=== PATIENT | female | born 2000 | race Caucasian/White ===

== ENCOUNTER 2020-12-12 21:24 | Emergency (ER) | payer OTHER ==
--- NOTE | 2020-12-12 22:51 | EDM.PDOC ---
ED HPI GENERAL MEDICAL PROBLEM - General Chief Complaint: Skin Complaint Stated Complaint: RASH/HIVES Time Seen by Provider: 12/12/20 21:27 Source of Information: Reports: Patient History Limitations: Reports: No Limitations - History of Present Illness INITIAL COMMENTS - FREE TEXT/NARRATIVE: chief complaint: hives This is a 20 year old female presents to the ER for evaluation of hives. She reports this morning woke up with hives, welts on buttock, thighs with intense itch. started on left buttocks and back of thigh. took Benadryl and hydrocortisone cream and the rash improved. This evening was eating, normal diet, her hands became swollen, hives, welts and intense itch. repeat Benadryl and cream and the rash is almost gone. denies any insect bites, bee stings, poison lindsey contact. No other family members with similar rash. denies cough, shortness of breath, wheezing or any respiratory or throat symptoms. denies any changes in diet or liquids. She is here on vacation with family. Onset: Today Duration: Hour(s):, Waxing/Waning Location: Reports: Generalized (buttocks, thigh, hands) Quality: Reports: Other (severe pruritus) Improves with: Reports: Medication Worsens with: Reports: None Associated Symptoms: Reports: No Other Symptoms Treatments TECHNICAL SME: Reports: Other Medication(s) (Benadryl, hydrocortisone) denies pain Pain Score (Numeric/FACES): 0 - Related Data Allergies Allergy/AdvReac Type Severity Reaction Status Date / Time No Known Allergies Allergy Verified 12/12/20 22:26 Home Meds: Home Meds Etonogestrel [Nexplanon] 1 implant SUBCUT ASDIRECTED 12/12/20 [History] Past Medical History HEENT History: Reports: Impaired Vision, Other (See Below) Other HEENT History: glasses Psychiatric History: Reports: Anxiety Social & Family History - Tobacco Use Tobacco Use Status *Q: Never Tobacco User - Caffeine Use Caffeine Use: Reports: Coffee - Recreational Drug Use Recreational Drug Use: No - Living Situation & Occupation Living situation: Reports: Single, with Family (lives with family, College student at [employer]) Occupation: Student ED ROS GENERAL - Review of Systems Review Of Systems: See Below Constitutional: Reports: Other (uncomfortable from new onset of rash) HEENT: Reports: No Symptoms Respiratory: Reports: No Symptoms Cardiovascular: Reports: No Symptoms Endocrine: Reports: No Symptoms GI/Abdominal: Reports: No Symptoms : Reports: No Symptoms, Urinary Retention Skin: Reports: Rash, Urticaria Neurological: Reports: No Symptoms Psychiatric: Reports: No Symptoms Hematologic/Lymphatic: Reports: No Symptoms Immunologic: Reports: No Symptoms ED EXAM, SKIN/RASH Exam: See Below Exam Limited By: No Limitations General Appearance: Alert, WD/WN, No Apparent Distress, Other (pleasant, neat and well groomed female) Ears: Normal External Exam Nose: Normal Inspection, Normal Mucosa Throat/Mouth: Normal Inspection, Normal Lips, Normal Teeth, Normal Gums, Normal Oropharynx, Normal Voice, No Airway Compromise Head: Atraumatic, Normocephalic Neck: Normal Inspection, Supple, Non-Tender, Full Range of Motion Respiratory/Chest: No Respiratory Distress, Lungs Clear, Normal Breath Sounds, No Accessory Muscle Use Cardiovascular: Normal Peripheral Pulses, Regular Rate, Rhythm GI/Abdominal: Normal Bowel Sounds, Soft, Non-Tender Back Exam: Normal Inspection, Full Range of Motion Extremities: Normal Range of Motion, Non-Tender, Other (rash noted to left upper thight, low back, and hands) Neurological: No Motor/Sensory Deficits Psychiatric: Normal Affect, Normal Mood Skin: Warm, Dry, Normal Color, Rash Location, Skin: Other (left upper posterior thigh, left buttocks, low back and bilateral hands) Characteristics: Urticarial Associated features: Warmth, Swelling Lymphatic: No Adenopathy Course - Vital Signs Last Recorded V/S: Last Vital Signs Temp 98.2 F 12/12/20 22:28 Pulse 103 H 12/12/20 22:28 Resp 16 12/12/20 22:28 BP 143/82 H 12/12/20 22:28 Pulse Ox 98 12/12/20 22:28 - Re-Assessments/Exams Free Text/Narrative Re-Assessment/Exam: 12/12/20 23:02 discussed hives and potential causes and sometime this is just unknown, will need to treat for 3 to 5 days reduce activities, return to ER or call 911 if symptoms worsen or has any respiratory symptoms. agree with plan of care Departure - Departure Time of Disposition: 22:48 Disposition: Home, Self-Care 01 Condition: Good Clinical Impression: Urticaria - Discharge Information *PRESCRIPTION DRUG MONITORING PROGRAM REVIEWED*: Not Applicable *COPY OF PRESCRIPTION DRUG MONITORING REPORT IN PATIENT MYKE: Not Applicable Instructions: Hives, [id number] Referrals: PCP,None [Primary Care Provider] - Forms: ED Department Discharge Care Plan Goals: Hives- unknown cause -Prednisone 2 tabs twice a day for 5 days- start tonight -continue Benadryl 25 mg one every 6 hours -continue steroid creams for comfort as needed -limit activity for the next 3 days -return to ER for increase hives, any signs of shortness of breath, cough, wheeze or any concerns. Sepsis Event Note (ED) - Evaluation Sepsis Screening Result: No Definite Risk - Focused Exam Vital Signs: Vital Signs Temp Pulse Resp BP Pulse Ox 12/12/20 22:28 98.2 F 103 H 16 143/82 H 98 12/12/20 21:54 98.2 F 103 H 16 143/82 H 98 - Problem List & Annotations (1) Urticaria SNOMED Code(s): 811213884 Code(s): L50.9 - URTICARIA, UNSPECIFIED Status: Acute Priority: High Current Visit: Yes - Problem List Review Problem List Initiated/Reviewed/Updated: Yes - Assessment/Plan Plan: Hives- unknown cause -Prednisone 2 tabs twice a day for 5 days- start tonight -continue Benadryl 25 mg one every 6 hours -continue steroid creams for comfort as needed -limit activity for the next 3 days -return to ER for increase hives, any signs of shortness of breath, cough, wheeze or any concerns.
== END 2020-12-12 22:56 | disposition home or self-care (01) ==
LOC: JP.ED 21:24
DX: L50.9 Urticaria, unspecified (principal)
CPT/HCPCS: 99282